=== PATIENT | male | born 1960 ===

== ENCOUNTER 2024-08-17 11:24 | Day surgery (SDC) | payer MEDICARE, OTHER ==
[2024-08-17] VITALS (12 sets, daily range): BP systolic 100–128; BP diastolic 62–73; PULSE 56–93; TEMP 97.5–98.5
[~2024-08-17] VITALS: Ht 175.3 cm; Wt 106.3 kg
[~2024-08-17 11:24] MED LIST: ASPIRIN 81M81 MG/TA2 PO; BRILINTA90 MG PO; CEPHALEXIN500 M1 PO; COREG 3.123.125 MG/T PO; COREG 6.256.25 MG/TA PO; ENTRESTO 49 MG1 EACH PO; FARXIGA10 PO
[2024-08-17] MEDS ORDERED: ceFAZolin 2 G in Water For Injection,Sterile 20 ML IV SCH (11:45)
[2024-08-17] MEDS ORDERED: 1/2 NS 1,000 ML IV SCH (11:45)
[2024-08-17 12:48] LABS: HEMATOCRIT 41.9 % (42.0-52.0); INR 1.2 (0.8-3.0); MEAN CELL VOLUME 94 fl (80.0-100.0); MEAN CORPUSCULAR HEMOGLOBIN 31 pg (27-31); MEAN CORPUSCULAR HGB CONC 33 g/dl (33.0-37.0); MEAN PLATELET VOLUME 10.9 fl (7.4-10.4); PLATELET COUNT 134 K/mm3 (130-400); PROTHROMBIN TIME 12.8 SECONDS (9.7-12.8); RED BLOOD COUNT 4.46 M/mm3 (4.20-5.60)
[2024-08-17 13:06] LABS: CALCIUM 9.3 mg/dL (8.4-10.2); CREATININE, serum 0.85 mg/dL (0.72-1.25); POTASSIUM 3.9 mEq/L (3.5-4.5)
[2024-08-17] MEDS ORDERED: NS 1,000 ML IV.SOLN. IR SCH (14:10)
[2024-08-17] MEDS ORDERED: Midazolam 2 MG/2 ML VIAL IV SCH (14:37)
[2024-08-17] MEDS ORDERED: fentaNYL 50 MCG/ML 2 ML VIAL IV SCH (14:38)
--- NOTE | 2024-08-17 15:15 | NUR ---
PATIENT ARRIVED TO ROOM FROM CLINICAL DERMATOLOGIST. PACEMAKER SITE C/D/I. ON ROOM AIR. TELEMETRY INPLACE. CHEST LEFT SIDE BRUISED.ICE PACK PLACED BY TAMMY.PATIENT ON POST-OPS. PATIENT FAMILY AT BEDSIDE.CALL LIGHT WITH IN REACH. BED AT LOWEST POSITION.
--- NOTE | 2024-08-17 15:15 | NUR ---
Octavio is transferred up to medical rm [id number] after lead revision with Dr. Gale. Ice pack to incision site. site looks good, dressing CDI, site soft. BS report and handoff of care to Miriam SHABAZZ.
--- NOTE | 2024-08-17 16:15 | NUR ---
This nurse paged es from cardiology for orders for this patient admitted to medical. Patient unable to order from kitchen. no order inplace.awaiting response.
[2024-08-17] MEDS ORDERED: Carvedilol 3.125 MG TAB PO SCH (17:00)
[2024-08-17] MEDS ORDERED: Acetaminophen 325 MG TAB PO PRN (17:30)
[2024-08-17] MEDS ORDERED: Temazepam 15 MG CAP PO PRN (17:30)
[2024-08-17] MEDS ORDERED: Docusate Sodium 100 MG CAP PO PRN (17:30)
[2024-08-17] MEDS ORDERED: Cephalexin 500 MG CAP PO SCH (21:00)
--- NOTE | 2024-08-17 21:00 | NUR ---
UPON SHIFT ASSESSMENT, ROSALINA WAS AWAKE IN BED WITH LT ARM IN SLING. HE IS A&O X 4 AND PACEMAKER SITE TO UPPER LEFT CHEST IS CDI. VS ARE WNL AND PATIENT DENIES PAIN AT THIS TIME. TELE SHOWS NS. CALL LIGHT WITHI REACH AND BEDALARM ON.
[2024-08-18] VITALS (7 sets, daily range): BP systolic 107–127; BP diastolic 66–81; PULSE 56–87; TEMP 97.9–98.6
[2024-08-18 07:21] LABS: BASO % 0.5 % (0.0-2.0); EOS # 0.2 K/mm3 (0.0-0.7); EOS % 3.9 % (0.0-4.0); GRAN # 3.9 K/mm3 (1.4-6.5); GRAN % 63.4 % (42.2-75.2); HEMATOCRIT 42.5 % (42.0-52.0); HEMOGLOBIN 13.8 g/dl (13.5-18.0); LYMPH # 1.5 K/mm3 (1.2-3.4); LYMPH % 24.4 % (20.0-51.0); MEAN CELL VOLUME 96 fl (80.0-100.0); MEAN CORPUSCULAR HEMOGLOBIN 31 pg (27-31); MEAN CORPUSCULAR HGB CONC 33 g/dl (33.0-37.0); MEAN PLATELET VOLUME 11.3 fl (7.4-10.4); MONO # 0.5 K/mm3 (0.1-0.6); MONO % 7.6 % (1.7-9.3); PLATELET COUNT 129 K/mm3 (130-400); RED BLOOD COUNT 4.45 M/mm3 (4.20-5.60); REDCELL DISTRIBUTION WIDTH-CV 14.1 % (11.5-14.5)
[2024-08-18 07:48] LABS: CREATININE, serum 0.85 mg/dL (0.72-1.25)
--- NOTE | 2024-08-18 08:34 | NUR ---
Patient resting in bed, alert and oriented x4, VSS. States just some discomfort on the incision site. Assessment completed, meds given. Breakfast tray arriving. Patient states he is ready to go home. No furhter needs at this time. Call light within reach.
--- NOTE | 2024-08-18 11:03 | NUR ---
smokehouse worker met with pt and his sister, Guerline to discuss discharge planning. He reports to live with his daughter in [place]. He reports to see Dr. Patiño in [place] for PCP needs and obtains medications from [facility] with no difficulties. he states to be independent with ADLS and uses no DME. He reports his DPOA-HC is with his sisters, Chey or Karen, and they are the likely agents. He expressed no concerns for mobility or falls. He is eager to go home today. Discharge Plan: home
--- NOTE | 2024-08-18 12:57 | NUR ---
D: Investigative Agent stopped by room on rounds. A: Pt was resting and content with sister in the room. Sister of the pt informed sound cutter that they had recently lost a niece and asked for prayer. Investigative Agent prayed with her and pt. Both appreciated the visit. P: Investigative Agent informed pt that if he needed anything from the sound cutter area to let his nurse know. Investigative Agent will follow up as needed.
--- NOTE | 2024-08-18 13:06 | NUR ---
Patient was provided with discharge information, all questions answered. IV access and telemetry were discontied.
== END 2024-08-18 13:08 | disposition home or self-care (01) ==
LOC: COL.CAR 11:24 → MEDICAL 15:15 → COL.CAR 08-18 13:08
PROVIDERS: Internal Medicine Cardiovascular Disease
DX: T82.190A Other mechanical complication of cardiac electrode, initial encounter (principal); I50.22 Chronic systolic (congestive) heart failure; I25.5 Ischemic cardiomyopathy; I11.0 Hypertensive heart disease with heart failure; I25.10 Atherosclerotic heart disease of native coronary artery without angina pectoris; E78.5 Hyperlipidemia, unspecified; Z79.899 Other long term (current) drug therapy; Z79.82 Long term (current) use of aspirin; Z95.5 Presence of coronary angioplasty implant and graft
CPT/HCPCS: OP; J0665-JZ; J0688; J0690; J2250; J3010; J7030